=== PATIENT | male | born 1950 | race Caucasian/White ===

== ENCOUNTER → 2016-10-21 | Outpatient (CLI) | payer MEDICARE ==
[~2016-10-21] MED LIST: CEFU500T5 PO; FLUO20CA42 PO; LSNP10T PO; OXYC-199 PO; OXYC1TAB87 PO
--- NOTE | 2016-10-23 11:06 | ECHOCARDIOGRAPHY REPORT ---
PROCEDURE PHYSICIAN: LILAINE TRACEY DATE OF PROCEDURE: 10/21/2016 TWO DIMENSIONAL ECHOCARDIOGRAM REPORT PRIMARY PHYSICIAN: OTHER PHYSICIAN: REFERRING PHYSICIAN: Dr. Marcella Rowe and Dr. Lavell Jarrett at [facility]. ORDERING PHYSICIAN: INDICATION FOR THE PROCEDURE: Congestive heart failure. MEASUREMENTS DERIVED VALUES LV DIAMETER (LAX) NORMALS NORMALS Diastolic 7.4 (3.6-5.2) Eject. Fract. 30% (60%+/-6%) Systolic (2.3-3.9) Diastolic Vol. % Shortening (0.22-0.42) Systolic Vol. Aortic Root IVS THICKNESS Diastolic 1.1 (0.6-1.1) LVPW THICKNESS Diastolic 1. (0.6-1.1) LA DIAMETER Systolic 5.7 (2.1-3.7) FINDINGS: 1. Technical quality is good. 2. The left ventricle is dilated with severe diffuse left ventricular hypokinesia. Systolic function is reduced. Estimated ejection fraction 30%. Diastolic dysfunction is suggested by Doppler. 3. The left atrium is dilated. No clot or thrombus were seen within the left atrium. 4. The right atrium and right ventricle are prominent with pacemaker lead noted in the right heart chambers. 5. Mitral valve is normal in morphology with mild mitral regurgitation noted by color Doppler flow. No mitral valve prolapse. No mitral valve stenosis. 6. Aortic valve is trileaflet with normal opening and closing pattern. No significant aortic stenosis or regurgitation was seen. 7. Tricuspid valve is normal in morphology with mild tricuspid regurgitation noted by color Doppler flow. Doppler across tricuspid valve estimated pulmonary artery pressure of 31+ right atrial pressure. 8. Pulmonic valve is functioning normally. 9. No pericardial effusion. CONCLUSION: 1. Dilated left ventricle with diffuse left ventricular hypokinesia. Systolic function is reduced. Estimated ejection fraction 30%. Diastolic dysfunction is suggested by Doppler. 2. Left atrial dilatation. 3. Prominent right heart chambers with pacemaker lead seen in the right heart chambers. 4. Mild mitral and tricuspid regurgitation. 5. Estimated pulmonary artery pressure of 40 mmHg. Job ID: [id number] Dictated Date: 10/22/2016 14:53:44 Medical Manager Date: 10/23/2016 10:48:22 / [email or web address]
== END ==
LOC: CARD 14:49
PROVIDERS: ATTEND Internal Medicine Cardiovascular Disease
DX: I11.0 Hypertensive heart disease with heart failure (principal); I50.9 Heart failure, unspecified; I25.10 Atherosclerotic heart disease of native coronary artery without angina pectoris; I48.0 Paroxysmal atrial fibrillation; Z72.0 Tobacco use
CPT/HCPCS: 93306